=== PATIENT | female | born 1990 | race Caucasian/White ===

== ENCOUNTER → 2024-12-29 11:19 | Outpatient (REF) | payer BC, SELFPAY ==
[2024-12-29 12:14] LABS: Hematocrit 39.2 % (37.0-47.0); Hemoglobin 13.6 g/dL (12.0-16.0); Mean Corp Hgb Conc. 34.7 g/dL (33.0-37.0); Mean Corpuscular Volume 88.3 fL (81.0-99.0); Nucleated Red Blood Cells % 0 %; Platelet Count 265 10^3/uL (130-400); Red Cell Dist. Width 13.0 % (11.5-14.5)
[2024-12-29 12:23] LABS: Urine Character Clear (Clear)
[2024-12-29 12:25] LABS: INR 1.05; PT 14.2 Sec (11.4-14.6)
[2024-12-29 12:26] LABS: APTT 31.6 Sec (23.4-35.0)
[2024-12-29 12:50] LABS: Urine Red Blood Cell 0-2 /HPF (0-2); Urine Squamous Cell 16-20 /LPF (Few)
[2024-12-29 12:52] LABS: ALT (SGPT) 18 U/L (0-35); AST (SGOT) 25 U/L (14-36); Albumin 4.9 g/dl (3.5-5.0); Alkaline Phosphatase 55 U/L (38-126); Blood Urea Nitrogen 16 mg/dl (7-17); Calcium 9.8 mg/dl (8.4-10.2); Carbon Dioxide 28 mmol/L (22-30); Chloride 104 mmol/L (98-107); Glucose 85 mg/dl (70-99); HDL Cholesterol 63 mg/dl; LDL Cholesterol, Calculated 91 mg/dl; Potassium 4.3 mmol/L (3.5-5.1); Sodium 139 mmol/L (135-145); Total Protein 7.4 g/dl (6.3-8.2); Very Low Density Lipoprotein 9 mg/dl (0-30); eGFR > 60.00
[2024-12-29 13:08] LABS: FSH 5.2 mIU/ml
== END ==
LOC: REG 11:19
PROVIDERS: ATTENDING PHYSICIAN Obstetrics & Gynecology; FAMILY PHYSICIAN Nurse Practitioner Family
DX: J06.9 Acute upper respiratory infection, unspecified (principal); Z01.89 Encounter for other specified special examinations; N92.0 Excessive and frequent menstruation with regular cycle
CPT/HCPCS: 36415; 80053; 80061; 81003; 81015; 82670; 83001; 83002; 84443; 85025; 85610; 85730; 87086